=== PATIENT | male | born 1940 | race Caucasian/White ===

== ENCOUNTER 2019-10-13 07:50 | Day surgery (SDC) | payer MEDICARE, BC ==
[~2019-10-13] VITALS: Ht 167.6 cm; Wt 71.7 kg
[2019-10-13 08:29] LABS: BASOPHILS % 0.7 % (0.0-2.0); EOSINOPHILS % 0.5 % (0.0-5.0); HEMATOCRIT. 41.1 % (42.0-52.0); HEMOGLOBIN. 13.2 g/dL (14.0-18.0); LYMPHOCYTES % 7.1 % (20.0-50.0); MEAN CORPUSCULAR HEMOGLOBIN 27.6 pg (28.0-32.0); MEAN PLATELET VOLUME 8.5 fl (7.4-10.4); MONOCYTES % 6.4 % (2.0-8.0); NEUTROPHILS % 85.3 % (40.0-76.0); PLATELET 216 x1000/uL (130-400); RED BLOOD CELL COUNT 4.79 mill/uL (4.7-6.1); RED CELL DISTRIBUTION WIDTH 16.5 % (11.6-14.6)
[2019-10-13 08:39] LABS: INR 1.1; PARTIAL THROMBOPLASTIN TIME 29.9 sec (23.4-31.0); PROTHROMBIN TIME 11.5 sec (9.6-11.0)
[2019-10-13] MEDS ORDERED: HEPARIN SODIUM 1,000 UNIT/1ML VIAL IV ONE ×2 (09:16→15:00)
[2019-10-13] MEDS ORDERED: SKIN ADHESIVE 0.7 GM EA TOP ONE (09:16)
[2019-10-13] MEDS ORDERED: LIDOCAINE HCL 1% 20ML VIAL (Pyxis) INJ ONE (09:16)
[2019-10-13] MEDS ORDERED: BACITRACIN 15GM TUBE TOP ONE (09:16)
[2019-10-13] MEDS ORDERED: BACITRACIN 50,000 UNITS/VIAL ONE (09:17)
[2019-10-13] MEDS ORDERED: BUPIVACAINE HCL/PF 0.5% (5MG/ML) 10ML ONE (09:17)
[2019-10-13] MEDS ORDERED: THROMBIN (BOVINE) 5000 UNITS/VIAL TOP ONE (09:17)
[2019-10-13] MEDS ORDERED: ALLO100T PO (09:43)
[2019-10-13] MEDS ORDERED: FERR325T6 PO (09:43)
[2019-10-13] MEDS ORDERED: GABA-529 PO (09:43)
[2019-10-13] MEDS ORDERED: ATOR40TA70 PO (09:43)
[2019-10-13] MEDS ORDERED: AMLO10TA80 PO (09:43)
[2019-10-13] MEDS ORDERED: LEVO150T8 PO (09:43)
[2019-10-13] MEDS ORDERED: SEVE800T8 PO (09:43)
[2019-10-13] MEDS ORDERED: PANT40TA4 PO (09:43)
[2019-10-13] MEDS ORDERED: ISOS120T9 PO (09:43)
[2019-10-13] MEDS ORDERED: SODIUM CHLORIDE 0.9% 500 ML IV ONE (09:45)
[2019-10-13] MEDS ORDERED: FENTANYL CITRATE/PF 50MCG/ML 2ML VIAL ONE (11:00)
[2019-10-13] MEDS ORDERED: MIDAZOLAM HCL 2 MG/2 ML VIAL ONE (11:00)
[2019-10-13] MEDS ORDERED: PHENYLEPHRINE HCL 10 MG/ML 1ML (IV VIAL) IV ONE (11:02)
[2019-10-13] MEDS ORDERED: PROPOFOL 200MG/20ML VIAL IV ONE ×2 (11:02→11:03)
[2019-10-13] MEDS ORDERED: LIDOCAINE HCL/PF 1% 10 MG/ML 5ML VIAL ONE (11:02)
[2019-10-13] MEDS ORDERED: CEFAZOLIN SODIUM 1000MG/VIAL ONE (11:03)
[2019-10-13] MEDS ORDERED: SODIUM CHLORIDE 0.9% 10ML VIAL ONE (11:03)
[2019-10-13] MEDS ORDERED: ROCURONIUM BROMIDE 10MG/ML VIAL 5ML IV ONE (11:11)
[2019-10-13] MEDS ORDERED: EPHEDRINE SULFATE 50MG/ML VIAL ONE (11:18)
[2019-10-13] MEDS ORDERED: DEXAMETHASONE 4MG/ML 1ML VIAL ONE (11:27)
[2019-10-13] MEDS ORDERED: HEPARIN 1000 UNITS/ML 10ML ONE (11:32)
[2019-10-13] MEDS ORDERED: PROTAMINE SULFATE 10MG/ML VIAL 5ML IV ONE (12:18)
== END 2019-10-13 15:30 | disposition home or self-care (01) ==
LOC: OR 07:50
PROVIDERS: ATTEND Surgery Vascular Surgery
DX: I12.0 Hypertensive chronic kidney disease with stage 5 chronic kidney disease or end stage renal disease (principal); E10.22 Type 1 diabetes mellitus with diabetic chronic kidney disease; N18.6 End stage renal disease; E78.00 Pure hypercholesterolemia, unspecified; Z79.899 Other long term (current) drug therapy; Z79.84 Long term (current) use of oral hypoglycemic drugs; Z91.041 Radiographic dye allergy status; Z98.890 Other specified postprocedural states
CPT/HCPCS: 36415; 36830; 71045; 80048; 85025; 85610; 85730; 93005; C1768; J0690; J1100; J1644; J2250; J2370; J2704; J3010; J3490; J7040; J7042; J2720

== ENCOUNTER 2021-01-04 10:05 | Inpatient (IN) | payer MEDICARE, BC ==
[~2021-01-04] VITALS: Ht 167.6 cm; Wt 72.1 kg
[2021-01-04] VITALS (8 sets, daily range): BP systolic 104–148; BP diastolic 55–76
[~2021-01-04 10:05] MED LIST: ALLO100T PO; AMLO10TA80 PO; ATOR40TA70 PO; FERR325T6 PO; GABA-529 PO; ISOS120T9 PO; LEVO150T8 PO; PANT40TA51 PO; SEVE800T8 PO
[2021-01-04 11:51] LABS: BG CARBOXYHEMOGLOBIN 0.1 % (0.5-1.5); BG FRACTION INSPIRED OXYGEN 21; BG HCO3 ACT 27.2 mmol/L (22.0-26.0); BG METHEMOGLOBIN 0.3 % (0.0-1.5); BG OXYHEMOGLOBIN 96.6 % (94.0-97.0); BG PCO2 40.2 mmHg (35.0-45.0); BG PH 7.449 (7.350-7.450); BG PO2 88.7 mmHg (75.0-100.0); BG SAMPLE SITE RIGHT BRACHIAL; BG TOTAL HEMOGLOBIN 8.6 g/dL (12.0-18.0); BG VENT MODE ROOM AIR
[2021-01-04] MEDS ORDERED: LIDOCAINE HCL 1% 20ML VIAL (Pyxis) INJ ONE (13:07)
[2021-01-04] MEDS ORDERED: SENNOSIDES 8.6MG TABLET PO PRN (20:15)
[2021-01-04] MEDS ORDERED: METOPROLOL TARTRATE 25MG TABLET PO ONE (20:15)
[2021-01-04] MEDS ORDERED: DIPHENHYDRAMINE 12.5MG/5ML UDC PO ONE (20:15)
[2021-01-04] MEDS ORDERED: DIPHENHYDRAMINE 50MG/ML VIAL IV PRN (20:30)
[2021-01-04] MEDS ORDERED: DEXTROSE 50% WATER 50ML SYRINGE IV PRN (20:45)
[2021-01-04] MEDS: BLOOD SUGAR DIAGNOSTIC STRIP TEST SCH (21:00)
[2021-01-04] MEDS ORDERED: MIRTAZAPINE 15MG TABLET PO SCH (21:00)
[2021-01-04] MEDS ORDERED: ATORVASTATIN CALCIUM 40MG TABLET PO SCH (21:00)
[2021-01-04] MEDS ORDERED: ASPIRIN 81MG TABLET PO SCH (21:00)
[2021-01-04] MEDS: MIRTAZAPINE 15MG TABLET PO SCH (21:00)
[2021-01-04] MEDS: GABAPENTIN 300MG CAPSULE PO SCH (22:19)
[2021-01-04] MEDS: AMLODIPINE 5MG TABLET PO SCH (22:20)
[2021-01-04] MEDS: TICAGRELOR 90 MG TABLET PO SCH (22:21)
[2021-01-04] MEDS: ATORVASTATIN CALCIUM 40MG TABLET PO SCH (22:21)
[2021-01-04] MEDS: INSULIN LISPRO 100 UNITS/ML SUBCUT SCH (22:26)
[2021-01-05] VITALS (12 sets, daily range): BP systolic 126–172; BP diastolic 37–100
[2021-01-05 05:39] LABS: T4 FREE 1.46 ng/dL (0.76-1.46)
[2021-01-05 05:50] LABS: FOLIC ACID (FOLATE) SERUM 13.8 ng/mL (>5.38)
[2021-01-05] MEDS: BLOOD SUGAR DIAGNOSTIC STRIP TEST SCH ×4 (07:30→21:13)
[2021-01-05] MEDS: INSULIN LISPRO 100 UNITS/ML SUBCUT SCH ×4 (08:00→21:00)
[2021-01-05] MEDS: LEVOTHYROXINE SODIUM 150MCG TABLET PO SCH (08:19)
[2021-01-05] MEDS: POLYETHYLENE GLYCOL 3350 (17GM) 1 DOSE PACK PO SCH (09:00)
[2021-01-05 09:34] LABS: HEMATOCRIT 27.7 % (42.0-52.0); MEAN CORPUSCULAR HEMOGLOBIN 29.7 pg (28.0-32.0); PLATELET 271 x1000/uL (130-400); RED BLOOD CELL COUNT 3.04 mill/uL (4.7-6.1); RED CELL DISTRIBUTION WIDTH 16.1 % (11.6-14.6)
[2021-01-05] MEDS: ASPIRIN 81MG TABLET PO SCH (09:50)
[2021-01-05] MEDS: FOLIC ACID/VITAMIN B COMP W-C TABLET PO SCH (09:50)
[2021-01-05] MEDS: TICAGRELOR 90 MG TABLET PO SCH ×2 (09:50→16:56)
[2021-01-05] MEDS: PANTOPRAZOLE 40MG DR TABLET PO SCH (09:51)
[2021-01-05] MEDS: METOPROLOL TARTRATE 25MG TABLET PO SCH (09:51)
[2021-01-05] MEDS: FERROUS SULFATE 325MG TABLET PO SCH (09:51)
[2021-01-05] MEDS: AMLODIPINE 5MG TABLET PO SCH (09:59)
[2021-01-05] MEDS: MIRTAZAPINE 15MG TABLET PO SCH (21:00)
[2021-01-05] MEDS: ATORVASTATIN CALCIUM 40MG TABLET PO SCH (21:13)
[2021-01-05] MEDS: GABAPENTIN 300MG CAPSULE PO SCH (21:13)
[2021-01-06] VITALS (8 sets, daily range): BP systolic 101–166; BP diastolic 59–88
[2021-01-06 06:43] LABS: BASOPHILS % 0.3 % (0.0-2.0); EOSINOPHILS % 2.7 % (0.0-5.0); HEMATOCRIT. 27.4 % (42.0-52.0); HEMOGLOBIN. 8.9 g/dL (14.0-18.0); LYMPHOCYTES % 15.3 % (20.0-50.0); MEAN CORPUSCULAR HEMOGLOBIN 29.3 pg (28.0-32.0); MEAN CORPUSCULAR VOLUME 89.8 fL (80.0-94.0); MEAN PLATELET VOLUME 7.5 fl (7.4-10.4); MONOCYTES % 8.4 % (2.0-8.0); NEUTROPHILS % 73.3 % (40.0-76.0); PLATELET 286 x1000/uL (130-400); RED BLOOD CELL COUNT 3.05 mill/uL (4.7-6.1); RED CELL DISTRIBUTION WIDTH 15.7 % (11.6-14.6)
[2021-01-06] MEDS: BLOOD SUGAR DIAGNOSTIC STRIP TEST SCH ×2 (07:30→11:59)
[2021-01-06] MEDS: INSULIN LISPRO 100 UNITS/ML SUBCUT SCH ×2 (08:00→11:59)
[2021-01-06] MEDS: METOPROLOL TARTRATE 25MG TABLET PO SCH (09:32)
[2021-01-06] MEDS: TICAGRELOR 90 MG TABLET PO SCH (09:33)
[2021-01-06] MEDS: FOLIC ACID/VITAMIN B COMP W-C TABLET PO SCH (09:33)
[2021-01-06] MEDS: AMLODIPINE 5MG TABLET PO SCH (09:33)
[2021-01-06] MEDS: POLYETHYLENE GLYCOL 3350 (17GM) 1 DOSE PACK PO SCH (09:33)
[2021-01-06] MEDS: PANTOPRAZOLE 40MG DR TABLET PO SCH (09:33)
[2021-01-06] MEDS: FERROUS SULFATE 325MG TABLET PO SCH (09:33)
[2021-01-06] MEDS: ASPIRIN 81MG TABLET PO SCH (09:33)
[2021-01-06] MEDS: LEVOTHYROXINE SODIUM 150MCG TABLET PO SCH (09:48)
[2021-01-06] MEDS ORDERED: ISOS120T9 PO (14:44)
[2021-01-06] MEDS ORDERED: GABA-529 PO (14:44)
[2021-01-06] MEDS ORDERED: ALLO100T PO (14:44)
[2021-01-06] MEDS ORDERED: ATOR40TA70 PO (14:44)
[2021-01-06] MEDS ORDERED: PANT40TA51 PO (14:44)
[2021-01-06] MEDS ORDERED: SEVE800T8 PO (14:44)
[2021-01-06] MEDS ORDERED: LEVO150T8 PO (14:44)
[2021-01-06] MEDS ORDERED: AMLO10TA80 PO (14:44)
[2021-01-06] MEDS ORDERED: FERR325T6 PO (14:44)
== END 2021-01-06 13:30 | DRG 69 ==
LOC: 5EST 10:05
PROVIDERS: ADMIT Internal Medicine Nephrology; ATTEND Internal Medicine Nephrology
PROC: 5A1D70Z Performance of Urinary Filtration, Intermittent, Less than 6 Hours Per Day (ICD-10-PCS; principal; 2021-01-04)
PROC: 05HY33Z Insertion of Infusion Device into Upper Vein, Percutaneous Approach (ICD-10-PCS; 2021-01-04)
PROC: B54MZZA Ultrasonography of Right Upper Extremity Veins, Guidance (ICD-10-PCS; 2021-01-04)
PROC: 5A1D70Z Performance of Urinary Filtration, Intermittent, Less than 6 Hours Per Day (ICD-10-PCS; 2021-01-06)
DX: G45.9 Transient cerebral ischemic attack, unspecified (principal); G93.41 Metabolic encephalopathy; N18.6 End stage renal disease; I13.2 Hypertensive heart and chronic kidney disease with heart failure and with stage 5 chronic kidney disease, or end stage renal disease; Q24.5 Malformation of coronary vessels; I50.30 Unspecified diastolic (congestive) heart failure; G62.81 Critical illness polyneuropathy; E11.42 Type 2 diabetes mellitus with diabetic polyneuropathy; E11.22 Type 2 diabetes mellitus with diabetic chronic kidney disease; I25.10 Atherosclerotic heart disease of native coronary artery without angina pectoris; E03.9 Hypothyroidism, unspecified; F43.20 Adjustment disorder, unspecified; E78.00 Pure hypercholesterolemia, unspecified; D63.8 Anemia in other chronic diseases classified elsewhere; I35.0 Nonrheumatic aortic (valve) stenosis; K21.9 Gastro-esophageal reflux disease without esophagitis; M19.90 Unspecified osteoarthritis, unspecified site; R13.10 Dysphagia, unspecified; R01.1 Cardiac murmur, unspecified; M10.9 Gout, unspecified; R26.9 Unspecified abnormalities of gait and mobility; R30.0 Dysuria; E03.8 Other specified hypothyroidism; R47.81 Slurred speech; Z20.822 Contact with and (suspected) exposure to COVID-19; Z53.20 Procedure and treatment not carried out because of patient's decision for unspecified reasons; Z82.49 Family history of ischemic heart disease and other diseases of the circulatory system; Z87.891 Personal history of nicotine dependence; Z95.5 Presence of coronary angioplasty implant and graft; Z99.2 Dependence on renal dialysis; Z91.041 Radiographic dye allergy status; I25.2 Old myocardial infarction; Z87.19 Personal history of other diseases of the digestive system
CPT/HCPCS: 36415; 36600; 70544; 70547; 70553; 71045; 76937; 80048; 80061; 82375; 82607; 82746; 82805; 82962; 83036; 84439; 84443; 84481; 85025; 85027; 87426; 92523; 92610; 97162; 97166; C1725; J1815; J3490; J7040; J8499

== ENCOUNTER 2021-07-07 12:32 | Emergency (ER) | payer MEDICARE, BC ==
[~2021-07-07] VITALS: Ht 175.3 cm; Wt 75.0 kg
[2021-07-07 13:11] VITALS: BP 136/84
== END 2021-07-07 13:53 | disposition left against medical advice (07) ==
LOC: ER 12:32
DX: T82.838A Hemorrhage due to vascular prosthetic devices, implants and grafts, initial encounter (principal); I10 Essential (primary) hypertension; Z79.899 Other long term (current) drug therapy; Z91.041 Radiographic dye allergy status
CPT/HCPCS: 71045; 99283

== ENCOUNTER 2025-02-01 15:09 | Inpatient (IN) | payer MEDICARE, BC, MEDICAID ==
[~2025-02-01] VITALS: Ht 175.3 cm; Wt 59.0 kg
[~2025-02-01 15:09] MED LIST changes: +ISOS120T13 PO; -ISOS120T9 PO
[2025-02-01] MEDS ORDERED: CALCIUM GLUCONATE 1GM PREMIX 50 ML IV ONE (15:30)
[2025-02-01] MEDS: SODIUM CHLORIDE 0.9% 250 ML IV ONE (15:54)
[2025-02-01] MEDS: CALCIUM GLUCONATE 1GM PREMIX 50 ML IV NR (16:14)
[2025-02-01 16:22] LABS: BASOPHILS % 0.7 % (0.0-2.0); DIFFERENTIAL COMMENT 0; EOSINOPHILS % 0.3 % (0.0-5.0); HEMATOCRIT. 36.5 % (42.0-52.0); LYMPHOCYTES % 9.5 % (20.0-50.0); MEAN CORPUSCULAR HEMOGLOBIN 28.6 pg (28.0-32.0); MEAN CORPUSCULAR VOLUME 95.1 fL (80.0-94.0); MEAN PLATELET VOLUME 8.1 fl (7.4-10.4); MONOCYTES % 5.1 % (2.0-8.0); NEUTROPHILS % 84.4 % (40.0-76.0); PLATELET 104 x1000/uL (130-400); RED BLOOD CELL COUNT 3.84 mill/uL (4.7-6.1); RED CELL DISTRIBUTION WIDTH 18.3 % (11.6-14.6); WHITE BLOOD COUNT 5.8 x1000/uL (4.5-11.0)
[2025-02-01 16:32] LABS: CHLORIDE 101 mEq/L (98-107); POTASSIUM 4.6 mEq/L (3.5-5.1); SODIUM 133 mEq/L (136-145)
[2025-02-01 16:33] LABS: CALCIUM 8.9 mg/dL (8.7-10.4); CARBON DIOXIDE 23 mEq/L (21-32)
[2025-02-01 16:38] LABS: GLUCOSE 150 mg/dL (70-105)
[2025-02-01 16:39] LABS: UREA NITROGEN BLOOD 23 mg/dL (9-23)
[2025-02-01 16:40] LABS: ALANINE AMINOTRANSFERASE 20 IU/L (10-49); ASPARTATE AMINOTRANSFERASE 20 IU/L (<34); BILIRUBIN DIRECT 0.1 mg/dL (<=3.0)
[2025-02-01 16:41] LABS: BILIRUBIN TOTAL 0.2 mg/dL (0.1-1.0); PROTEIN TOTAL 5.8 g/dL (6.0-8.3)
[2025-02-01 16:56] LABS: TROPONIN I HIGH SENSITIVITY 44 ng/L (3.0-53)
[2025-02-01 17:03] LABS: CREATININE 5.5 mg/dL (0.6-1.3)
[2025-02-01 19:22] LABS: D-DIMER 0.46 mg/L FEU (<0.50); INR 1.3; PROTHROMBIN TIME 13.4 sec (9.6-11.0)
[2025-02-01 21:50] VITALS: BP 113/44; PULSE 56; RESP 20; TEMP 37.1
[2025-02-01] MEDS ORDERED: ONDANSETRON HCL 4MG/2ML INJ IV PRN (23:15)
[2025-02-01] MEDS ORDERED: MAGNESIUM/ALUMINUM HYDROXIDE/SIMETHICONE 30ML UDC PO PRN (23:15)
[2025-02-01] MEDS ORDERED: DOCUSATE SODIUM 100MG CAPSULE PO PRN (23:15)
[2025-02-01] MEDS ORDERED: GUAIFENESIN 200MG/10ML SUGAR FREE UDC PO PRN (23:15)
[2025-02-01] MEDS ORDERED: CLONIDINE 0.1MG TABLET PO PRN (23:15)
[2025-02-01] MEDS ORDERED: ACETAMINOPHEN 325MG TABLET PO PRN ×2 (23:15)
[2025-02-02] VITALS (56 sets, daily range): BP systolic 51–197; BP diastolic 32–94; PULSE 49–100; RESP 8–35; TEMP 33.1–37.2; O2SAT 82–100
[2025-02-02] MEDS ORDERED: TRAZ-251 PO (02:17)
[2025-02-02] MEDS ORDERED: ESCI-7 PO (02:17)
[2025-02-02] MEDS ORDERED: CARV6.2548 PO (02:17)
[2025-02-02] MEDS ORDERED: HYDR25TA78 PO (02:17)
[2025-02-02] MEDS ORDERED: AMI2 PO (02:17)
[2025-02-02] MEDS ORDERED: ISOS10TA2 PO (02:17)
[2025-02-02] MEDS ORDERED: RISP-29 PO (02:17)
[2025-02-02] MEDS: DOXYCYCLINE 100MG/100ML 100 ML IV SCH (05:42)
[2025-02-02] MEDS: CEFTRIAXONE 1GM/50ML 50 ML IV SCH (05:43)
[2025-02-02 05:50] LABS: CARBON DIOXIDE 24 mEq/L (21-32); CHLORIDE 103 mEq/L (98-107); POTASSIUM 5.5 mEq/L (3.5-5.1); SODIUM 135 mEq/L (136-145)
[2025-02-02 05:51] LABS: CALCIUM 9.3 mg/dL (8.7-10.4)
[2025-02-02 05:57] LABS: GLUCOSE 120 mg/dL (70-105)
[2025-02-02 05:58] LABS: UREA NITROGEN BLOOD 28 mg/dL (9-23)
[2025-02-02 06:00] LABS: CHOLESTEROL 91 mg/dL (<200); CREATINE KINASE MB FRACTION 6.9 ng/mL (0.5-3.6); TRIGLYCERIDE 70 mg/dL (0-150)
[2025-02-02 06:01] LABS: HDL CHOLESTEROL 41 mg/dL (>55); LDL CHOLESTEROL 21 mg/dL (5-100)
[2025-02-02 06:02] LABS: PHOSPHORUS 5.2 mg/dL (2.5-4.9)
[2025-02-02 06:34] LABS: CREATININE 5.9 mg/dL (0.6-1.3)
[2025-02-02 06:35] LABS: HEMATOCRIT. 36.2 % (42.0-52.0); HEMOGLOBIN. 11.3 g/dL (14.0-18.0); MEAN CORPUSCULAR HEMOGLOBIN 28.4 pg (28.0-32.0); MEAN CORPUSCULAR HGB CONC 31.2 g/dL (31.0-37.0); MEAN PLATELET VOLUME 8.3 fl (7.4-10.4); PLATELET 75 x1000/uL (130-400); RED BLOOD CELL COUNT 3.98 mill/uL (4.7-6.1); RED CELL DISTRIBUTION WIDTH 17.5 % (11.6-14.6); WHITE BLOOD COUNT 5.6 x1000/uL (4.5-11.0)
[2025-02-02] MEDS: LEVOTHYROXINE SODIUM 150MCG TABLET PO SCH (06:48)
[2025-02-02] MEDS: GABAPENTIN 100MG CAPSULE PO SCH (06:48)
[2025-02-02 07:06] LABS: HEPATITIS B SURFACE ANTIGEN NEGATIVE (Negative)
[2025-02-02 07:11] LABS: DIFFERENTIAL COMMENT 1
[2025-02-02 07:26] LABS: HEPATITIS A AB IGM NEGATIVE (Negative)
[2025-02-02 07:27] LABS: HEPATITIS B CORE AB IGM NEGATIVE (Negative); HEPATITIS C AB NON REACTIVE (Neg) (Negative)
[2025-02-02] MEDS ORDERED: ATROPINE SULFATE 1MG/10ML SYR ONE (08:08)
[2025-02-02] MEDS: PANTOPRAZOLE SODIUM 40 MG/VIAL IV SCH (08:42)
[2025-02-02] MEDS: SEVELAMER CARBONATE 800 MG TABLET PO SCH (08:43)
[2025-02-02] MEDS: ENOXAPARIN 30MG/0.3ML SYR SUBCUT SCH (09:00)
[2025-02-02] MEDS ORDERED: AMIODARONE 200MG TABLET PO SCH (09:00)
[2025-02-02] MEDS: SODIUM BICARBONATE 8.4% 50MEQ/50ML SYR IV NR (11:00)
[2025-02-02] MEDS ORDERED: ATROPINE SULFATE 1MG/10ML SYR IV PRN (11:15)
[2025-02-02] MEDS ORDERED: ALBUMIN HUMAN 12.5GM/50ML (25%) IV NR (11:15)
[2025-02-02] MEDS ORDERED: NOREPINEPHRINE 8 MG in DEXT 5% WATER 242 ML IV PRN (11:45)
[2025-02-02] MEDS: NOREPINEPHRINE 8MG/250ML PMX 250ML IV PRN (11:59)
[2025-02-02] MEDS ORDERED: ALBUTEROL (0.083%) 2.5MG/3ML NEB HHN NR (12:15)
[2025-02-02] MEDS: SODIUM ZIRCONIUM CYCLOSILICATE 10GM/PACKET PO NR (12:15)
[2025-02-02] MEDS: DOPAMINE 800MG PREMIX (DOUBLE) 250 ML IV ONE (12:40)
[2025-02-02] MEDS ORDERED: LIDOCAINE HCL 1% 10 MG/ML 10ML VIAL ONE (12:58)
[2025-02-02 14:55] LABS: CHLORIDE 103 mEq/L (98-107); POTASSIUM 4.4 mEq/L (3.5-5.1); SODIUM 135 mEq/L (136-145)
[2025-02-02 14:56] LABS: CALCIUM 9.4 mg/dL (8.7-10.4); CARBON DIOXIDE 25 mEq/L (21-32)
[2025-02-02 15:01] LABS: GLUCOSE 140 mg/dL (70-105); TRIGLYCERIDE 47 mg/dL (0-150); UREA NITROGEN BLOOD 30 mg/dL (9-23)
[2025-02-02 15:02] LABS: LDL CHOLESTEROL 16 mg/dL (5-100); TROPONIN I HIGH SENSITIVITY 45 ng/L (3.0-53)
[2025-02-02 15:03] LABS: CHOLESTEROL 82 mg/dL (<200); HDL CHOLESTEROL 43 mg/dL (>55); PHOSPHORUS 4.9 mg/dL (2.5-4.9)
[2025-02-02 15:05] LABS: CREATININE 5.5 mg/dL (0.6-1.3); T4 FREE 0.88 ng/dL (0.89-1.76)
[2025-02-02 15:06] LABS: THYROID STIMULATING HORMONE 40.23 uIU/mL (0.55-4.78)
[2025-02-02] MEDS: DEXTROSE 50% WATER 50ML SYRINGE IV NR (16:26)
[2025-02-02] MEDS: INSULIN REGULAR (HUMULIN R) 1000UNITS/10ML VIAL IV NR (16:32)
[2025-02-02] MEDS: METHYLPREDNISOLONE SOD SUCC 125MG/2ML (ACT-O-VIAL) IV NR (16:39)
[2025-02-02 16:57] LABS: CREATINE KINASE MB FRACTION 7.8 ng/mL (0.5-3.6)
[2025-02-02] MEDS: IPRATROPIUM/ALBUTEROL 0.5-3(2.5)MG/3ML NEB HHN SCH (19:43)
[2025-02-02] MEDS ORDERED: TRAZODONE HCL 50MG TABLET PO SCH (21:00)
[2025-02-02] MEDS: FAMOTIDINE 20MG TABLET PO SCH (21:00)
[2025-02-02] MEDS: ATORVASTATIN CALCIUM 40MG TABLET PO SCH (21:00)
[2025-02-02 21:03] LABS: ANISOCYTOSIS 1+; PLATELET ESTIMATE DECREASED
[2025-02-02 21:13] LABS: POTASSIUM 4.2 mEq/L (3.5-5.1)
[2025-02-02] MEDS: LEVOTHYROXINE SODIUM 100 MCG/ VIAL IV SCH (22:48)
[2025-02-03] VITALS (105 sets, daily range): BP systolic 56–187; BP diastolic 35–98; PULSE 47–95; RESP 12–32; TEMP 36.114–38.3; O2SAT 33–100
[2025-02-03 06:13] LABS: AMMONIA 21 uMol/L (<32)
[2025-02-03 06:16] LABS: CARBON DIOXIDE 25 mEq/L (21-32); CHLORIDE 104 mEq/L (98-107); POTASSIUM 4.5 mEq/L (3.5-5.1); SODIUM 137 mEq/L (136-145)
[2025-02-03 06:17] LABS: CALCIUM 9.4 mg/dL (8.7-10.4); HEMATOCRIT. 32.1 % (42.0-52.0); MEAN CORPUSCULAR HEMOGLOBIN 28.3 pg (28.0-32.0); MEAN CORPUSCULAR HGB CONC 31.2 g/dL (31.0-37.0); MEAN CORPUSCULAR VOLUME 90.6 fL (80.0-94.0); MEAN PLATELET VOLUME 8.8 fl (7.4-10.4); PLATELET 99 x1000/uL (130-400); RED BLOOD CELL COUNT 3.54 mill/uL (4.7-6.1); RED CELL DISTRIBUTION WIDTH 17.5 % (11.6-14.6)
[2025-02-03 06:22] LABS: CREATININE 4.7 mg/dL (0.6-1.3); GLUCOSE 150 mg/dL (70-105); UREA NITROGEN BLOOD 23 mg/dL (9-23)
[2025-02-03 06:24] LABS: PHOSPHORUS 3.6 mg/dL (2.5-4.9)
[2025-02-03 06:26] LABS: VITAMIN B12 SERUM 1231 pg/mL (211-911)
[2025-02-03 06:31] LABS: DIFFERENTIAL COMMENT 1
[2025-02-03] MEDS ORDERED: FOLI-43 PO (08:43)
[2025-02-03] MEDS ORDERED: GABA-529 PO (08:43)
[2025-02-03] MEDS ORDERED: MIDAZOLAM HCL 5 MG/5 ML VIAL IV NR (08:45)
[2025-02-03] MEDS ORDERED: APIX2.5T PO (08:45)
[2025-02-03] MEDS ORDERED: LIDO700A30 TP (08:45)
[2025-02-03] MEDS ORDERED: EMPA10TA PO (08:45)
[2025-02-03] MEDS ORDERED: LEVOTHYROXINE SODIUM 100 MCG/ VIAL IV SCH (09:00)
[2025-02-03] MEDS ORDERED: TETRACAINE/BENZOCAINE/BUTAMBEN 20 GM SPRAY MM ONE (09:42)
[2025-02-03] MEDS: FENTANYL CITRATE/PF 50MCG/ML 2ML VIAL IV NR (09:55)
[2025-02-03] MEDS: MIDAZOLAM HCL 2 MG/2 ML VIAL IV NR (09:55)
[2025-02-03 10:02] LABS: PLATELET ESTIMATE DECREASED
[2025-02-03 10:03] LABS: ANISOCYTOSIS 1+
[2025-02-03] MEDS: HYDROCORTISONE SOD SUCCINATE 100 MG/2 ML VIAL IV SCH (14:12)
[2025-02-03 19:07] LABS: BG BASE EXCESS -8.3 mmol/L (-2.0-3.0); BG CARBOXYHEMOGLOBIN 0.5 % (0.5-1.5); BG DEOXYHEMOGLOBIN 0.6 % (0.0-5.0); BG FRACTION INSPIRED OXYGEN 100; BG HCO3 ACT 23.6 mmol/L (21.0-28.0); BG OXYGEN SATURATION 99.4 % (94.0-98.0); BG OXYHEMOGLOBIN 98.9 % (94.0-98.0); BG PCO2 89.7 mmHg (35.0-48.0); BG PH 7.038 (7.350-7.450); BG SAMPLE SITE LEFT BRACHIAL; BG TOTAL HEMOGLOBIN 11.5 g/dL (13.5-17.5); BG VENT MODE MASK - BIPAP
[2025-02-03] MEDS ORDERED: MIDAZOLAM 100MG/100ML PMX 100 ML IV PRN (19:30)
[2025-02-03] MEDS: LEVOTHYROXINE SODIUM 100 MCG/ VIAL IV SCH (20:00)
[2025-02-03 20:29] LABS: HEMATOCRIT 34.3 % (42.0-52.0); HEMOGLOBIN 10.6 g/dL (14.0-18.0); MEAN CORPUSCULAR HGB CONC 30.7 g/dL (31.0-37.0); MEAN CORPUSCULAR VOLUME 91.3 fL (80.0-94.0); PLATELET 116 x1000/uL (130-400); RED BLOOD CELL COUNT 3.76 mill/uL (4.7-6.1); RED CELL DISTRIBUTION WIDTH 18.3 % (11.6-14.6); WHITE BLOOD COUNT 13.4 x1000/uL (4.5-11.0)
[2025-02-03 20:37] LABS: CARBON DIOXIDE 24 mEq/L (21-32); CHLORIDE 101 mEq/L (98-107); SODIUM 135 mEq/L (136-145)
[2025-02-03 20:38] LABS: CALCIUM 9.4 mg/dL (8.7-10.4)
[2025-02-03 20:43] LABS: GLUCOSE 167 mg/dL (70-105); UREA NITROGEN BLOOD 32 mg/dL (9-23)
[2025-02-03 20:45] LABS: PHOSPHORUS 5.8 mg/dL (2.5-4.9)
[2025-02-03 20:46] LABS: CREATININE 5.2 mg/dL (0.6-1.3)
[2025-02-03] MEDS: FENTANYL 2500MCG/250ML PMX 250 ML IV ONE (22:13)
[2025-02-04] VITALS (122 sets, daily range): BP systolic 63–185; BP diastolic 27–173; PULSE 47–61; RESP 6–26; TEMP 35.7–36.9; O2SAT 84–100
[2025-02-04 01:10] LABS: BG BASE EXCESS -7.3 mmol/L (-2.0-3.0); BG FRACTION INSPIRED OXYGEN 100; BG HCO3 ACT 18.9 mmol/L (21.0-28.0); BG METHEMOGLOBIN 0.1 % (0.5-1.5); BG OXYHEMOGLOBIN 98.9 % (94.0-98.0); BG PCO2 40.9 mmHg (35.0-48.0); BG PH 7.283 (7.350-7.450); BG PO2 243.4 mmHg (83.0-108.0); BG SAMPLE SITE LEFT RADIAL; BG TOTAL HEMOGLOBIN 12.7 g/dL (13.5-17.5); BG VENT MODE VENT - AC
[2025-02-04 06:22] LABS: HEMATOCRIT. 35.6 % (42.0-52.0); HEMOGLOBIN. 11.3 g/dL (14.0-18.0); MEAN CORPUSCULAR HEMOGLOBIN 28.5 pg (28.0-32.0); MEAN CORPUSCULAR HGB CONC 31.7 g/dL (31.0-37.0); MEAN CORPUSCULAR VOLUME 90.2 fL (80.0-94.0); MEAN PLATELET VOLUME 8.2 fl (7.4-10.4); PLATELET 104 x1000/uL (130-400); RED BLOOD CELL COUNT 3.95 mill/uL (4.7-6.1); RED CELL DISTRIBUTION WIDTH 18.1 % (11.6-14.6); WHITE BLOOD COUNT 17.4 x1000/uL (4.5-11.0)
[2025-02-04 06:53] LABS: CHLORIDE 101 mEq/L (98-107); POTASSIUM 4.5 mEq/L (3.5-5.1); SODIUM 136 mEq/L (136-145)
[2025-02-04 06:54] LABS: CALCIUM 9.8 mg/dL (8.7-10.4); CARBON DIOXIDE 20 mEq/L (21-32)
[2025-02-04 06:59] LABS: DIFFERENTIAL COMMENT 1; GLUCOSE 209 mg/dL (70-105); UREA NITROGEN BLOOD 36 mg/dL (9-23)
[2025-02-04 07:01] LABS: ALANINE AMINOTRANSFERASE 27 IU/L (10-49); ALBUMIN 2.9 g/dL (3.2-4.8); ASPARTATE AMINOTRANSFERASE 23 IU/L (<34); BILIRUBIN TOTAL 0.3 mg/dL (0.1-1.0); PROTEIN TOTAL 5.6 g/dL (6.0-8.3)
[2025-02-04] MEDS ORDERED: LEVOTHYROXINE SODIUM 100MCG TABLET PO SCH (07:50)
[2025-02-04] MEDS: MIDODRINE HCL 5MG TABLET PO SCH (08:33)
[2025-02-04 08:42] LABS: BG BASE EXCESS -8.1 mmol/L (-2.0-3.0); BG CARBOXYHEMOGLOBIN 0.2 % (0.5-1.5); BG DEOXYHEMOGLOBIN 6.4 % (0.0-5.0); BG FRACTION INSPIRED OXYGEN 40; BG HCO3 ACT 18.3 mmol/L (21.0-28.0); BG METHEMOGLOBIN 0.3 % (0.5-1.5); BG OXYGEN SATURATION 93.6 % (94.0-98.0); BG OXYHEMOGLOBIN 93.1 % (94.0-98.0); BG PCO2 40.6 mmHg (35.0-48.0); BG PH 7.271 (7.350-7.450); BG PO2 75.2 mmHg (83.0-108.0); BG TOTAL HEMOGLOBIN 11.3 g/dL (13.5-17.5); BG VENT MODE VENT - SIMV
[2025-02-04] MEDS ORDERED: LEVOTHYROXINE SODIUM 100 MCG/ VIAL IV SCH (09:00)
[2025-02-04 09:01] LABS: CREATININE 5.4 mg/dL (0.6-1.3)
[2025-02-04] MEDS: PIPERACILLIN/TAZO 3.375G/50ML IV SCH (12:47)
[2025-02-04] MEDS: VANCOMYCIN 1GM PMX (XELLIA) 200 ML IV NR (13:16)
[2025-02-04 13:58] LABS: ANISOCYTOSIS 1+; PLATELET ESTIMATE DECREASED
[2025-02-04] MEDS ORDERED: PIPERACILLIN/TAZO 3.375G/100ML 100 ML IV SCH (14:00)
[2025-02-04 17:10] LABS: LACTIC ACID 2.1 mmol/L (0.4-2.0)
[2025-02-05] VITALS (105 sets, daily range): BP systolic 87–170; BP diastolic 44–104; PULSE 46–91; RESP 5–34; TEMP 36.3918–36.6; O2SAT 89–100
[2025-02-05 07:10] LABS: HEMATOCRIT. 27.8 % (42.0-52.0); HEMOGLOBIN. 8.9 g/dL (14.0-18.0); MEAN CORPUSCULAR HEMOGLOBIN 28.4 pg (28.0-32.0); MEAN CORPUSCULAR HGB CONC 32.2 g/dL (31.0-37.0); MEAN CORPUSCULAR VOLUME 88.2 fL (80.0-94.0); MEAN PLATELET VOLUME 8.2 fl (7.4-10.4); PLATELET 58 x1000/uL (130-400); RED BLOOD CELL COUNT 3.15 mill/uL (4.7-6.1); RED CELL DISTRIBUTION WIDTH 17.6 % (11.6-14.6); WHITE BLOOD COUNT 7.1 x1000/uL (4.5-11.0)
[2025-02-05 07:26] LABS: POTASSIUM 4.6 mEq/L (3.5-5.1)
[2025-02-05 07:28] LABS: CALCIUM 9.5 mg/dL (8.7-10.4)
[2025-02-05 07:34] LABS: DIFFERENTIAL COMMENT 1
[2025-02-05 07:51] LABS: CREATININE 5.8 mg/dL (0.6-1.3)
[2025-02-05] MEDS: FAMOTIDINE 20MG TABLET PO SCH (08:14)
[2025-02-05] MEDS: DOPAMINE 400MG/250ML PREMIX 250 ML IV PRN (08:15)
[2025-02-05 08:18] LABS: BG CARBOXYHEMOGLOBIN 0.3 % (0.5-1.5); BG DEOXYHEMOGLOBIN 3.3 % (0.0-5.0); BG FRACTION INSPIRED OXYGEN 40; BG HCO3 ACT 20.3 mmol/L (21.0-28.0); BG METHEMOGLOBIN 0.3 % (0.5-1.5); BG OXYGEN SATURATION 96.7 % (94.0-98.0); BG OXYHEMOGLOBIN 96.1 % (94.0-98.0); BG PH 7.394 (7.350-7.450); BG PO2 86.7 mmHg (83.0-108.0); BG SAMPLE SITE LEFT BRACHIAL; BG TOTAL HEMOGLOBIN 9.5 g/dL (13.5-17.5); BG VENT MODE VENT - AC/PC
[2025-02-05 09:22] LABS: ANISOCYTOSIS 1+; PLATELET ESTIMATE DECREASED
[2025-02-05] MEDS: VANCOMYCIN 500MG PREMIX 100 ML IV NR (16:25)
[2025-02-05 17:04] LABS: BG CARBOXYHEMOGLOBIN 0.3 % (0.5-1.5); BG DEOXYHEMOGLOBIN 3.4 % (0.0-5.0); BG FRACTION INSPIRED OXYGEN 40; BG HCO3 ACT 20.9 mmol/L (21.0-28.0); BG METHEMOGLOBIN 0.3 % (0.5-1.5); BG OXYGEN SATURATION 96.6 % (94.0-98.0); BG PCO2 47.3 mmHg (35.0-48.0); BG PH 7.264 (7.350-7.450); BG PO2 96.2 mmHg (83.0-108.0); BG SAMPLE SITE LEFT BRACHIAL; BG TOTAL HEMOGLOBIN 11.4 g/dL (13.5-17.5); BG VENT MODE VENT - SIMV/VC
[2025-02-06] VITALS (95 sets, daily range): BP systolic 98–172; BP diastolic 50–136; PULSE 52–98; RESP 11–28; TEMP 36.4–37.4; O2SAT 70–100
[2025-02-06 06:39] LABS: HEMATOCRIT. 32.4 % (42.0-52.0); HEMOGLOBIN. 10.4 g/dL (14.0-18.0); MEAN CORPUSCULAR HEMOGLOBIN 28.7 pg (28.0-32.0); MEAN CORPUSCULAR HGB CONC 32.1 g/dL (31.0-37.0); MEAN CORPUSCULAR VOLUME 89.5 fL (80.0-94.0); MEAN PLATELET VOLUME 8.2 fl (7.4-10.4); PLATELET 66 x1000/uL (130-400); RED BLOOD CELL COUNT 3.62 mill/uL (4.7-6.1); RED CELL DISTRIBUTION WIDTH 18.1 % (11.6-14.6); WHITE BLOOD COUNT 9.2 x1000/uL (4.5-11.0)
[2025-02-06 06:47] LABS: CHLORIDE 103 mEq/L (98-107); POTASSIUM 4.6 mEq/L (3.5-5.1); SODIUM 137 mEq/L (136-145)
[2025-02-06 06:48] LABS: CALCIUM 10.1 mg/dL (8.7-10.4); CARBON DIOXIDE 22 mEq/L (21-32); DIFFERENTIAL COMMENT 1
[2025-02-06] MEDS: MORPHINE SULFATE 2 MG/ML INJ (NOT FOR IM USE) IV NR (06:49)
[2025-02-06 06:53] LABS: CREATININE 4.7 mg/dL (0.6-1.3); GLUCOSE 177 mg/dL (70-105); UREA NITROGEN BLOOD 43 mg/dL (9-23)
[2025-02-06 06:55] LABS: PHOSPHORUS 4.7 mg/dL (2.5-4.9)
[2025-02-06 08:58] LABS: BG BASE EXCESS -8.2 mmol/L (-2.0-3.0); BG CARBOXYHEMOGLOBIN 0.8 % (0.5-1.5); BG DEOXYHEMOGLOBIN 1.8 % (0.0-5.0); BG FRACTION INSPIRED OXYGEN 40; BG HCO3 ACT 18.4 mmol/L (21.0-28.0); BG METHEMOGLOBIN 0.3 % (0.5-1.5); BG OXYGEN SATURATION 98.2 % (94.0-98.0); BG OXYHEMOGLOBIN 97.1 % (94.0-98.0); BG PCO2 41.7 mmHg (35.0-48.0); BG PH 7.262 (7.350-7.450); BG PO2 116.4 mmHg (83.0-108.0); BG SAMPLE SITE LEFT BRACHIAL; BG TOTAL HEMOGLOBIN 11.2 g/dL (13.5-17.5); BG VENT MODE VENT - SIMV
[2025-02-06] MEDS ORDERED: SODIUM POLYSTYRENE SULFONATE 15 G/60 ML BOT PO ONE (10:00)
[2025-02-06 10:30] LABS: ANISOCYTOSIS 2+; PLATELET ESTIMATE DECREASED
[2025-02-06] MEDS: CEFEPIME 1GM PREMIX 50ML IV SCH (14:40)
[2025-02-06] MEDS ORDERED: DOXYCYCLINE 100MG/100ML 100 ML IV SCH (18:00)
[2025-02-06] MEDS: SODIUM CHLORIDE 3% FOR INH 4ML NEB INH SCH (19:50)
[2025-02-07] VITALS (44 sets, daily range): BP systolic 1–157; BP diastolic 50–126; PULSE 61–95; RESP 13–28; TEMP 35.9–37.2; O2SAT 89–100
[2025-02-07 05:57] LABS: HEMATOCRIT. 34.2 % (42.0-52.0); HEMOGLOBIN. 10.5 g/dL (14.0-18.0); MEAN CORPUSCULAR HGB CONC 30.8 g/dL (31.0-37.0); MEAN CORPUSCULAR VOLUME 90.9 fL (80.0-94.0); MEAN PLATELET VOLUME 8.7 fl (7.4-10.4); PLATELET 60 x1000/uL (130-400); RED BLOOD CELL COUNT 3.76 mill/uL (4.7-6.1); RED CELL DISTRIBUTION WIDTH 17.7 % (11.6-14.6); WHITE BLOOD COUNT 11.4 x1000/uL (4.5-11.0)
[2025-02-07 06:10] LABS: CARBON DIOXIDE 21 mEq/L (21-32); CHLORIDE 101 mEq/L (98-107); SODIUM 135 mEq/L (136-145)
[2025-02-07 06:11] LABS: CALCIUM 10.3 mg/dL (8.7-10.4)
[2025-02-07 06:16] LABS: GLUCOSE 158 mg/dL (70-105); UREA NITROGEN BLOOD 52 mg/dL (9-23)
[2025-02-07 06:22] LABS: CREATININE 5.4 mg/dL (0.6-1.3)
[2025-02-07] MEDS ORDERED: DEXTROSE 50% WATER 50ML SYRINGE IV PRN (07:45)
[2025-02-07] MEDS: BLOOD SUGAR DIAGNOSTIC STRIP TEST SCH (07:53)
[2025-02-07] MEDS: INSULIN LISPRO 100 UNITS/ML SUBCUT SCH (08:14)
[2025-02-07 08:23] LABS: DIFFERENTIAL COMMENT 1
[2025-02-07 10:51] LABS: ANISOCYTOSIS 1+; PLATELET ESTIMATE DECREASED
[2025-02-07] MEDS: IPRATROPIUM/ALBUTEROL 0.5-3(2.5)MG/3ML NEB HHN SCH (20:48)
[2025-02-07] MEDS: RISPERIDONE 1MG TABLET PO SCH (21:42)
[2025-02-08] VITALS (83 sets, daily range): BP systolic 69–222; BP diastolic 43–91; PULSE 40–82; RESP 11–27; TEMP 35.8–37.2; O2SAT 90–100
[2025-02-08] MEDS: LEVOFLOXACIN 500MG PREMIX 100 ML IV NR (02:13)
[2025-02-08 05:55] LABS: CHLORIDE 102 mEq/L (98-107); POTASSIUM 5.3 mEq/L (3.5-5.1); SODIUM 136 mEq/L (136-145)
[2025-02-08 05:56] LABS: CARBON DIOXIDE 24 mEq/L (21-32)
[2025-02-08] MEDS: CITALOPRAM HYDROBROMIDE 10MG TABLET PO SCH (09:00)
[2025-02-08] MEDS ORDERED: ATROPINE SULFATE 1MG/10ML SYR IV PRN (09:45)
[2025-02-08] MEDS: DEXT 5%/0.9% NACL 1,000 ML IV SCH (09:45)
[2025-02-08] MEDS: NOREPINEPHRINE 8MG/250ML PMX 250 ML IV PRN (09:46)
[2025-02-08] MEDS ORDERED: ETOMIDATE 2MG/ML 10ML VIAL IV ONE ×2 (13:51→14:01)
[2025-02-08 14:39] LABS: BG BASE EXCESS -9.3 mmol/L (-2.0-3.0); BG CARBOXYHEMOGLOBIN 0.6 % (0.5-1.5); BG DEOXYHEMOGLOBIN 0.3 % (0.0-5.0); BG FRACTION INSPIRED OXYGEN 100; BG HCO3 ACT 19.5 mmol/L (21.0-28.0); BG METHEMOGLOBIN 0.1 % (0.5-1.5); BG OXYGEN SATURATION 99.7 % (94.0-98.0); BG PCO2 54.7 mmHg (35.0-48.0); BG PH 7.169 (7.350-7.450); BG PO2 382.6 mmHg (83.0-108.0); BG TOTAL HEMOGLOBIN 12.7 g/dL (13.5-17.5); BG VENT MODE VENT - P/C
[2025-02-08 15:49] LABS: POTASSIUM 4.4 mEq/L (3.5-5.1)
[2025-02-08 15:50] LABS: CALCIUM 9.7 mg/dL (8.7-10.4)
[2025-02-08 15:55] LABS: CREATININE 4.1 mg/dL (0.6-1.3)
[2025-02-08 16:10] LABS: TROPONIN I HIGH SENSITIVITY 55 ng/L (3.0-53)
[2025-02-08 19:15] LABS: BG BASE EXCESS -6.6 mmol/L (-2.0-3.0); BG CARBOXYHEMOGLOBIN 1.2 % (0.5-1.5); BG DEOXYHEMOGLOBIN 3.3 % (0.0-5.0); BG FRACTION INSPIRED OXYGEN 50; BG HCO3 ACT 21.3 mmol/L (21.0-28.0); BG METHEMOGLOBIN 0.3 % (0.5-1.5); BG OXYGEN SATURATION 96.6 % (94.0-98.0); BG OXYHEMOGLOBIN 95.2 % (94.0-98.0); BG PCO2 53.6 mmHg (35.0-48.0); BG PH 7.218 (7.350-7.450); BG PO2 89.6 mmHg (83.0-108.0); BG SAMPLE SITE LEFT RADIAL; BG TOTAL HEMOGLOBIN 11.5 g/dL (13.5-17.5); BG VENT MODE VENT - P/C
[2025-02-09] VITALS (82 sets, daily range): BP systolic 75–173; BP diastolic 41–74; PULSE 55–87; RESP 14–28; TEMP 36.7–37.2; O2SAT 94–100
[2025-02-09 06:26] LABS: POTASSIUM 4.4 mEq/L (3.5-5.1)
[2025-02-09 06:27] LABS: CALCIUM 9.6 mg/dL (8.7-10.4)
[2025-02-09 06:32] LABS: CREATININE 4.4 mg/dL (0.6-1.3)
[2025-02-09 08:28] LABS: HEMOGLOBIN. 9.3 g/dL (14.0-18.0); MEAN CORPUSCULAR HEMOGLOBIN 28.3 pg (28.0-32.0); MEAN CORPUSCULAR VOLUME 88.4 fL (80.0-94.0); MEAN PLATELET VOLUME 9.7 fl (7.4-10.4); RED BLOOD CELL COUNT 3.27 mill/uL (4.7-6.1); RED CELL DISTRIBUTION WIDTH 17.2 % (11.6-14.6); WHITE BLOOD COUNT 13.3 x1000/uL (4.5-11.0)
[2025-02-09 09:02] LABS: DIFFERENTIAL COMMENT 1
[2025-02-09 09:03] LABS: PLATELET 47 x1000/uL (130-400)
[2025-02-09 09:15] LABS: BG BASE EXCESS -3.5 mmol/L (-2.0-3.0); BG CARBOXYHEMOGLOBIN 1.1 % (0.5-1.5); BG DEOXYHEMOGLOBIN 0.8 % (0.0-5.0); BG FRACTION INSPIRED OXYGEN 50; BG HCO3 ACT 21.6 mmol/L (21.0-28.0); BG OXYGEN SATURATION 99.2 % (94.0-98.0); BG OXYHEMOGLOBIN 98.1 % (94.0-98.0); BG PCO2 38.9 mmHg (35.0-48.0); BG PH 7.362 (7.350-7.450); BG PO2 149.6 mmHg (83.0-108.0); BG SAMPLE SITE RIGHT RADIAL; BG TOTAL HEMOGLOBIN 9.4 g/dL (13.5-17.5); BG TOTAL RESPIRATORY RATE 26 b/min; BG VENT MODE VENT - P/C
[2025-02-09 15:21] LABS: NUCLEATED RED BLOOD CELLS 3 /100 WBC; PLATELET ESTIMATE MARKEDLY DECREASED
[2025-02-09 15:22] LABS: GIANT PLATELETS FEW
[2025-02-09] MEDS: PROPOFOL 10MG/ML 100ML 100 ML IV PRN (18:05)
[2025-02-09] MEDS: LEVOFLOXACIN 500MG PREMIX 100 ML IV SCH (20:49)
[2025-02-09] MEDS ORDERED: LEVOFLOXACIN 250MG PREMIX 100 ML IV SCH (21:00)
[2025-02-10] VITALS (103 sets, daily range): BP systolic 84–188; BP diastolic 44–152; PULSE 58–91; RESP 11–28; TEMP 36.44736–37.2; O2SAT 95–100
[2025-02-10 05:47] LABS: CALCIUM 9.4 mg/dL (8.7-10.4)
[2025-02-10 05:52] LABS: CREATININE 4.9 mg/dL (0.6-1.3)
[2025-02-10 05:54] LABS: HEMATOCRIT. 26.8 % (42.0-52.0); HEMOGLOBIN. 8.6 g/dL (14.0-18.0); MEAN CORPUSCULAR HEMOGLOBIN 28.3 pg (28.0-32.0); MEAN CORPUSCULAR HGB CONC 32.1 g/dL (31.0-37.0); MEAN CORPUSCULAR VOLUME 88.1 fL (80.0-94.0); MEAN PLATELET VOLUME 9.5 fl (7.4-10.4); RED BLOOD CELL COUNT 3.04 mill/uL (4.7-6.1); RED CELL DISTRIBUTION WIDTH 16.8 % (11.6-14.6); WHITE BLOOD COUNT 7.7 x1000/uL (4.5-11.0)
[2025-02-10 06:06] LABS: DIFFERENTIAL COMMENT 1
[2025-02-10 06:10] LABS: PLATELET 32 x1000/uL (130-400)
[2025-02-10 08:17] LABS: NUCLEATED RED BLOOD CELLS 1 /100 WBC; PLATELET ESTIMATE MARKEDLY DECREASED
[2025-02-10 08:18] LABS: ANISOCYTOSIS 2+
[2025-02-10] MEDS: FLUDROCORTISONE ACETATE 0.1MG TABLET PO NR (10:43)
[2025-02-10 10:47] LABS: D-DIMER 1.57 mg/L FEU (<0.50); INR 1.3; PARTIAL THROMBOPLASTIN TIME 33.6 sec (23.4-31.0); PROTHROMBIN TIME 13.7 sec (9.6-11.0)
[2025-02-10 11:26] LABS: BG BASE EXCESS -2.6 mmol/L (-2.0-3.0); BG CARBOXYHEMOGLOBIN 1.2 % (0.5-1.5); BG DEOXYHEMOGLOBIN 11.6 % (0.0-5.0); BG FRACTION INSPIRED OXYGEN 40; BG METHEMOGLOBIN 0.3 % (0.5-1.5); BG OXYGEN SATURATION 88.2 % (94.0-98.0); BG OXYHEMOGLOBIN 86.9 % (94.0-98.0); BG PCO2 43.4 mmHg (35.0-48.0); BG PH 7.343 (7.350-7.450); BG PO2 59.7 mmHg (83.0-108.0); BG SAMPLE SITE RIGHT RADIAL; BG TOTAL HEMOGLOBIN 9.9 g/dL (13.5-17.5); BG VENT MODE VENT - AC/PC
[2025-02-10 13:19] LABS: BILIRUBIN TOTAL 0.3 mg/dL (0.1-1.0)
[2025-02-10] MEDS ORDERED: MIDODRINE HCL 5MG TABLET PO SCH (14:00)
[2025-02-10] MEDS: DESMOPRESSIN ACETATE IVPB 20 MCG in SODIUM CHLORIDE 0.9% 50 ML IV ONE (14:50)
[2025-02-10 16:44] LABS: BG BASE EXCESS -5.4 mmol/L (-2.0-3.0); BG CARBOXYHEMOGLOBIN 0.9 % (0.5-1.5); BG DEOXYHEMOGLOBIN 2.8 % (0.0-5.0); BG FRACTION INSPIRED OXYGEN 60; BG HCO3 ACT 21.3 mmol/L (21.0-28.0); BG METHEMOGLOBIN 0.3 % (0.5-1.5); BG OXYGEN SATURATION 97.2 % (94.0-98.0); BG PCO2 46.8 mmHg (35.0-48.0); BG PH 7.275 (7.350-7.450); BG PO2 102.7 mmHg (83.0-108.0); BG SAMPLE SITE RIGHT RADIAL; BG TOTAL HEMOGLOBIN 9.3 g/dL (13.5-17.5); BG VENT MODE VENT - CPAP
[2025-02-10] MEDS: DEXT 5%/0.9% NACL 1,000 ML IV SCH (18:36)
[2025-02-10] MEDS: PHYTONADIONE 10 MG in DEXTROSE 5% WATER 49 ML IV NR (21:44)
[2025-02-11] VITALS (98 sets, daily range): BP systolic 95–156; BP diastolic 45–92; PULSE 59–100; RESP 15–27; TEMP 36.3–37; O2SAT 90–100
[2025-02-11 06:01] LABS: CALCIUM 9.1 mg/dL (8.7-10.4)
[2025-02-11 06:05] LABS: CREATININE 4.3 mg/dL (0.6-1.3)
[2025-02-11 06:35] LABS: HEMATOCRIT. 27.4 % (42.0-52.0); HEMOGLOBIN. 8.8 g/dL (14.0-18.0); MEAN CORPUSCULAR HEMOGLOBIN 28.1 pg (28.0-32.0); MEAN CORPUSCULAR HGB CONC 32.1 g/dL (31.0-37.0); MEAN CORPUSCULAR VOLUME 87.5 fL (80.0-94.0); MEAN PLATELET VOLUME 8.1 fl (7.4-10.4); RED BLOOD CELL COUNT 3.13 mill/uL (4.7-6.1); RED CELL DISTRIBUTION WIDTH 16.9 % (11.6-14.6); WHITE BLOOD COUNT 7.2 x1000/uL (4.5-11.0)
[2025-02-11 06:59] LABS: DIFFERENTIAL COMMENT 1
[2025-02-11 07:02] LABS: PLATELET 27 x1000/uL (130-400)
[2025-02-11] MEDS: MIDODRINE HCL 5MG TABLET PO SCH ×2 (09:09→21:11)
[2025-02-11 09:32] LABS: ANISOCYTOSIS 1+; HYPOCHROMASIA 1+; PLATELET ESTIMATE MARKEDLY DECREASED
[2025-02-11 10:57] LABS: AMMONIA < 17 uMol/L (<32)
[2025-02-11] MEDS: HYDROCORTISONE SOD SUCCINATE 100 MG/2 ML VIAL IV SCH (13:39)
[2025-02-11] MEDS: DEXT 5%/0.9% NACL 1,000 ML IV SCH (17:59)
[2025-02-11] MEDS: LANTHANUM CARBONATE 500MG CHEW TABLET PO SCH (18:25)
[2025-02-11] MEDS: RACEPINEPHRINE 2.25% 0.5ML NEB VIAL HHN NR (21:22)
[2025-02-12] VITALS (26 sets, daily range): BP systolic 103–153; BP diastolic 43–78; PULSE 65–94; RESP 15–25; TEMP 35.6–36.6; O2SAT 95–100
[2025-02-12 10:09] LABS: HEMATOCRIT. 30.2 % (42.0-52.0); HEMOGLOBIN. 9.3 g/dL (14.0-18.0); MEAN CORPUSCULAR HEMOGLOBIN 27.7 pg (28.0-32.0); MEAN CORPUSCULAR HGB CONC 30.8 g/dL (31.0-37.0); MEAN CORPUSCULAR VOLUME 89.9 fL (80.0-94.0); MEAN PLATELET VOLUME 9.6 fl (7.4-10.4); RED BLOOD CELL COUNT 3.36 mill/uL (4.7-6.1); RED CELL DISTRIBUTION WIDTH 17.3 % (11.6-14.6); WHITE BLOOD COUNT 8.5 x1000/uL (4.5-11.0)
[2025-02-12 10:16] LABS: POTASSIUM 4.4 mEq/L (3.5-5.1)
[2025-02-12 10:18] LABS: CALCIUM 9.4 mg/dL (8.7-10.4)
[2025-02-12 10:22] LABS: DIFFERENTIAL COMMENT 1
[2025-02-12 10:23] LABS: CREATININE 4.9 mg/dL (0.6-1.3)
[2025-02-12 10:25] LABS: PLATELET 34 x1000/uL (130-400)
[2025-02-12 11:01] LABS: PLATELET ESTIMATE MARKEDLY DECREASED
[2025-02-12 11:02] LABS: ANISOCYTOSIS 1+
[2025-02-12] MEDS ORDERED: MORPHINE SULFATE/PF 1 MG/ML 100 MG in BAG 1 EACH IV PRN (12:30)
[2025-02-12] MEDS ORDERED: LORAZEPAM 2MG/ML UD SYRINGE IV PRN (12:30)
[2025-02-12] MEDS: IPRATROPIUM/ALBUTEROL 0.5-3(2.5)MG/3ML NEB HHN PRN (19:06)
[2025-02-13] VITALS: BP 110/42; PULSE 74; RESP 17; TEMP 35.6; O2SAT 97
[2025-02-13] MEDS: BLOOD SUGAR DIAGNOSTIC STRIP TEST SCH
[2025-02-13] MEDS: INSULIN LISPRO 100 UNITS/ML SUBCUT SCH (00:35)
[2025-02-13 04:00] VITALS: BP 101/39; PULSE 77; RESP 18; TEMP 37.2; O2SAT 98
== END 2025-02-13 06:35 | DRG 871 ==
LOC: ER 15:09 → EDBEDREQTM 20:47 → EDBEDREQ 20:47 → 6WST 22:27 → CVICU 02-02 11:25 → 5EST 02-07 13:00 → MICUNO 02-08 08:33 → 5EST 02-12 11:30
PROVIDERS: ADMIT Internal Medicine; ATTEND Internal Medicine
PROC: 5A09357 Assistance with Respiratory Ventilation, Less than 24 Consecutive Hours, Continuous Positive Airway Pressure (ICD-10-PCS; principal; 2025-02-02)
PROC: 02HV33Z Insertion of Infusion Device into Superior Vena Cava, Percutaneous Approach (ICD-10-PCS; 2025-02-02)
PROC: B548ZZA Ultrasonography of Superior Vena Cava, Guidance (ICD-10-PCS; 2025-02-02)
PROC: 5A1D70Z Performance of Urinary Filtration, Intermittent, Less than 6 Hours Per Day (ICD-10-PCS; 2025-02-02)
PROC: 5A09357 Assistance with Respiratory Ventilation, Less than 24 Consecutive Hours, Continuous Positive Airway Pressure (ICD-10-PCS; 2025-02-03)
PROC: 5A1945Z Respiratory Ventilation, 24-96 Consecutive Hours (ICD-10-PCS; 2025-02-03)
PROC: 0BH17EZ Insertion of Endotracheal Airway into Trachea, Via Natural or Artificial Opening (ICD-10-PCS; 2025-02-03)
PROC: 5A1D70Z Performance of Urinary Filtration, Intermittent, Less than 6 Hours Per Day (ICD-10-PCS; 2025-02-03)
PROC: 5A1D70Z Performance of Urinary Filtration, Intermittent, Less than 6 Hours Per Day (ICD-10-PCS; 2025-02-05)
PROC: 0BH17EZ Insertion of Endotracheal Airway into Trachea, Via Natural or Artificial Opening (ICD-10-PCS; 2025-02-08)
PROC: 5A1945Z Respiratory Ventilation, 24-96 Consecutive Hours (ICD-10-PCS; 2025-02-08)
PROC: 5A1D70Z Performance of Urinary Filtration, Intermittent, Less than 6 Hours Per Day (ICD-10-PCS; 2025-02-08)
PROC: 5A1D70Z Performance of Urinary Filtration, Intermittent, Less than 6 Hours Per Day (ICD-10-PCS; 2025-02-10)
PROC: 5A09357 Assistance with Respiratory Ventilation, Less than 24 Consecutive Hours, Continuous Positive Airway Pressure (ICD-10-PCS; 2025-02-12)
DX: A41.9 Sepsis, unspecified organism (principal); G92.8 Other toxic encephalopathy; J15.0 Pneumonia due to Klebsiella pneumoniae; J96.01 Acute respiratory failure with hypoxia; N18.6 End stage renal disease; J96.02 Acute respiratory failure with hypercapnia; E87.1 Hypo-osmolality and hyponatremia; I13.2 Hypertensive heart and chronic kidney disease with heart failure and with stage 5 chronic kidney disease, or end stage renal disease; I50.22 Chronic systolic (congestive) heart failure; Z99.11 Dependence on respirator [ventilator] status; R57.1 Hypovolemic shock; R91.8 Other nonspecific abnormal finding of lung field; Z99.2 Dependence on renal dialysis; D64.9 Anemia, unspecified; D69.6 Thrombocytopenia, unspecified; E03.9 Hypothyroidism, unspecified; E11.22 Type 2 diabetes mellitus with diabetic chronic kidney disease; I25.10 Atherosclerotic heart disease of native coronary artery without angina pectoris; I44.0 Atrioventricular block, first degree; E11.43 Type 2 diabetes mellitus with diabetic autonomic (poly)neuropathy; E11.621 Type 2 diabetes mellitus with foot ulcer; I44.7 Left bundle-branch block, unspecified; E87.5 Hyperkalemia; E11.42 Type 2 diabetes mellitus with diabetic polyneuropathy; L97.529 Non-pressure chronic ulcer of other part of left foot with unspecified severity; L97.519 Non-pressure chronic ulcer of other part of right foot with unspecified severity; E78.5 Hyperlipidemia, unspecified; I35.0 Nonrheumatic aortic (valve) stenosis; R32 Unspecified urinary incontinence; Z66 Do not resuscitate; S80.211A Abrasion, right knee, initial encounter; X58.XXXA Exposure to other specified factors, initial encounter; Y99.8 Other external cause status; R57.0 Cardiogenic shock; Z90.49 Acquired absence of other specified parts of digestive tract; Z79.899 Other long term (current) drug therapy; I25.2 Old myocardial infarction; Z51.5 Encounter for palliative care; Z79.84 Long term (current) use of oral hypoglycemic drugs; Z86.73 Personal history of transient ischemic attack (TIA), and cerebral infarction without residual deficits; Z91.041 Radiographic dye allergy status; Z95.2 Presence of prosthetic heart valve; Z95.5 Presence of coronary angioplasty implant and graft; Z87.19 Personal history of other diseases of the digestive system; Y93.89 Activity, other specified; Y92.89 Other specified places as the place of occurrence of the external cause
CPT/HCPCS: 31500; 31720; 36415; 36573; 36600; 71045; 80048; 80051; 80053; 80061; 80076; 80202; 82024; 82140; 82247; 82306; 82375; 82533; 82550; 82553; 82607; 82805; 82962; 83036; 83605; 83615; 83735; 83880; 83930; 84100; 84132; 84145; 84439; 84443; 84478; 84481; 84484; 85025; 85027; 85044; 85049; 85362; 85379; 85384; 86022; 86705; 86709; 87070; 87077; 87186; 87340; 90935; 93005; 93306; 93312; 93970; 94002; 94003; 94070; 94640; 94660; 94664; 94760; 96365; 98960; 99291; A4606; A6261; C1725; J0461; J0610; J0692; J0696; J1265; J1650; J1720; J1815; J1956; J2003; J2250; J2270; J2470; J2543; J2597; J2704; J2919; J3010; J3370; J3430; J3490; J7042; J7050; J7060; P9047